=== PATIENT | female | born 1955 | race Caucasian/White ===

== ENCOUNTER 2017-03-15 12:30 | Emergency (ER) | payer BC ==
[~2017-03-15] VITALS: Ht 165.1 cm; Wt 67.0 kg
[~2017-03-15 12:30] MED LIST: CYCL-36 PO; LORT7.5T3 PO; NAPR500 PO; Z.0.NO CURRENT MEDS
[2017-03-15 12:36] VITALS: BP 155/66; PULSE 87; RESP 16; TEMP 98.3; O2SAT 98
== END 2017-03-15 14:25 | disposition left against medical advice (07) ==
LOC: PHEFT 12:30
DX: Z53.21 Procedure and treatment not carried out due to patient leaving prior to being seen by health care provider (principal)
CPT/HCPCS: 99281